=== PATIENT | male | born 1955 | race Caucasian/White ===

== ENCOUNTER 2020-09-02 10:54 | Emergency (ER) | payer OTHER | END 2020-09-02 11:41 | disposition home or self-care (01) | LOC: JVIRT 10:54 | DX: Z11.52 Encounter for screening for COVID-19 (principal) | CPT/HCPCS: C9803; G2012-GT; U0003 ==

== ENCOUNTER 2021-09-01 08:04 | Day surgery (SDC) | payer OTHER ==
[2021-08-26 12:24] VITALS: BMI 26.2
[2021-09-01 10:25] VITALS: TEMP 98.1
[2021-09-01 10:42] VITALS: BP 120/84; PULSE 78
== END 2021-09-01 10:50 | disposition home or self-care (01) ==
LOC: FASU 08:04
PROVIDERS: ATTEND Orthopaedic Surgery Hand Surgery
PROC: 0LN70ZZ Release Right Hand Tendon, Open Approach (ICD-10-PCS; principal; 2021-09-01 09:47)
DX: M65.341 Trigger finger, right ring finger (principal)

== ENCOUNTER 2023-12-28 14:12 | Emergency (ER) | payer OTHER ==
[2023-12-28] MEDS ORDERED: ACETAMINOPHEN 500 MG TABLET (FP) ONE (14:33)
[2023-12-28] MEDS ORDERED: DIPHTH,PERTUSS(ACELL),TET 0.5 ML DISP.SYRIN IM ONE (14:33)
[2023-12-28] MEDS ORDERED: LIDOCAINE 5% TOPICAL PATCH ONE (14:33)
[2023-12-28 14:37] VITALS: BP 150/67; PULSE 67; RESP 16; TEMP 98.6; BMI 25.1
[2023-12-28] MEDS: ACETAMINOPHEN 500 MG TABLET (FP) PO ONE (14:50)
[2023-12-28] MEDS: DIPHTH,PERTUSS(ACELL),TET 0.5 ML DISP.SYRIN IM ONE (14:55)
[2023-12-28] MEDS: LIDOCAINE 5% TOPICAL PATCH TP ONE (14:56)
[2023-12-28] MEDS ORDERED: LIDOCAINE PATCH REMOVAL MC ONE (22:00)
== END 2023-12-28 16:05 | disposition home or self-care (01) ==
LOC: FER 14:12
PROC: 3E0234Z Introduction of Serum, Toxoid and Vaccine into Muscle, Percutaneous Approach (ICD-10-PCS; principal; 2023-12-28)
DX: S22.31XA Fracture of one rib, right side, initial encounter for closed fracture (principal); V18.9XXA Unspecified pedal cyclist injured in noncollision transport accident in traffic accident, initial encounter
CPT/HCPCS: 70450-TC; 71045-TC-FY; 71101-TC-RT-FY; 73030-TC-RT-FY; 90471; 90715; 99284-25

== ENCOUNTER 2024-01-10 13:12 | Emergency (ER) | payer OTHER ==
[2024-01-10 13:33] VITALS: RESP 16; BMI 28.9
[2024-01-10] MEDS ORDERED: MECLIZINE HCL 25 MG TABLET (FP) ONE ×2 (14:13→15:35)
[2024-01-10] MEDS: MECLIZINE HCL 25 MG TABLET (FP) PO ONE ×2 (14:20→15:44)
[2024-01-10] MEDS: SODIUM CHLORIDE 0.9% 500 ML INFUS.BAG IV ONE (14:21)
[2024-01-10 14:41] LABS: HEMOGLOBIN 14.7 G/dL (11.7-16.9); MCH 28.7 pg (25.7-33.7); MCHC 32.8 g/dl (32.0-35.9); MEAN CELL VOLUME 87.8 fl (80-96); MEAN PLT VOLUME 8.2 fl (7.5-11.1); PLATELET COUNT 180.2 10^3/uL (134-434); RBC 5.13 10^6/uL (4.00-5.60); RDW 14.1 % (11.9-15.9)
[2024-01-10 14:48] LABS: ALBUMIN 4.8 g/dl (3.4-5.0); BILIRUBIN,TOTAL 1.8 mg/dl (0.2-1); CALCIUM 9.7 mg/dl (8.5-10.1); CREATININE 0.9 mg/dl (0.6-1.3); POTASSIUM 3.9 mmol/L (3.5-5.1); TOT PROT 6.9 g/dl (6.4-8.2)
[2024-01-10 14:49] LABS: PLATELET ESTIMATE ADEQUATE
[2024-01-10 16:28] VITALS: BP 143/94; PULSE 72; TEMP 98.2
== END 2024-01-10 16:51 | disposition home or self-care (01) ==
LOC: FER 13:12
DX: R42 Dizziness and giddiness (principal); R11.0 Nausea
CPT/HCPCS: 36415; 70450-TC; 80053; 84484; 85027; 93005; 99285-25

== ENCOUNTER 2024-03-07 08:31 | Day surgery (SDC) | payer OTHER ==
[2024-03-04 15:48] VITALS: BMI 25.4
[2024-03-07] MEDS ORDERED: BUPIVACAINE HCL/PF 2.5 MG/ML - 30 ML VIAL IJ ONE (09:52)
[2024-03-07] MEDS ORDERED: EPINEPHrine 1:1,000 1,000 MCG/ML ML ONE (09:52)
[2024-03-07] MEDS ORDERED: MIDAZOLAM HCL 2 MG/2 ML SINGLE DOSE VIAL ONE (11:18)
[2024-03-07] MEDS ORDERED: ROPIVACAINE HCL/PF 100 MG/20 ML VIAL ONE (11:26)
[2024-03-07] MEDS ORDERED: PROPOFOL 20 ML ONE (11:49)
[2024-03-07] MEDS ORDERED: LIDOCAINE HCL/PF 2% SDV 5ML VIAL ONE (11:50)
[2024-03-07] MEDS ORDERED: ONDANSETRON 4 MG/2 ML VIAL ONE (11:50)
[2024-03-07] MEDS ORDERED: ROCURONIUM BROMIDE 50 MG/5 ML SYRINGE ONE (11:50)
[2024-03-07] MEDS ORDERED: ceFAZolin SODIUM 1 GM VIAL ONE (11:50)
[2024-03-07] MEDS ORDERED: DEXAMETHASONE SOD PHOSPHATE 4 MG/1 ML VIAL ONE (11:50)
[2024-03-07] MEDS ORDERED: SEVOFLURANE 250 ML BTL ONE (11:51)
[2024-03-07] MEDS ORDERED: TRANEXAMIC ACID 1000 MG/10 ML VIAL ONE (12:18)
[2024-03-07] MEDS ORDERED: ONDANSETRON 4 MG/2 ML VIAL IVPUSH PRN (12:32)
[2024-03-07] MEDS ORDERED: oxyCODONE HCL 5 MG TABLET PO PRN ×2 (12:32)
[2024-03-07] MEDS ORDERED: LACTATED RINGERS SOLUTION 1,000 ML IV SCH (12:45)
[2024-03-07] MEDS ORDERED: SUGAMMADEX SODIUM 200 MG/2 ML VIAL ONE (13:34)
[2024-03-07] MEDS: KETOROLAC TROMETHAMINE 30 MG/1 ML VIAL IVPUSH SCH (14:25)
[2024-03-07] MEDS: ACETAMINOPHEN 500 MG TABLET (FP) PO SCH (14:29)
[2024-03-07] MEDS: ACETAMINOPHEN 1000 MG/100 ML BAG IVPB ONE (14:30)
[2024-03-07 15:06] VITALS: TEMP 97
[2024-03-07 15:53] VITALS: BP 118/72; PULSE 81; RESP 19
[2024-03-07] MEDS ORDERED: ACETAMINOPHEN 500 MG TABLET (FP) PO SCH (20:30)
== END 2024-03-07 15:59 | disposition home or self-care (01) ==
LOC: FASU 08:31
PROVIDERS: ATTEND Orthopaedic Surgery Sports Medicine
PROC: 0LB14ZZ Excision of Right Shoulder Tendon, Percutaneous Endoscopic Approach (ICD-10-PCS; principal; 2024-03-07 12:24)
DX: S46.011A Strain of muscle(s) and tendon(s) of the rotator cuff of right shoulder, initial encounter (principal); S43.431A Superior glenoid labrum lesion of right shoulder, initial encounter; M75.41 Impingement syndrome of right shoulder; X58.XXXA Exposure to other specified factors, initial encounter; Y93.9 Activity, unspecified; Y92.9 Unspecified place or not applicable; M65.811 Other synovitis and tenosynovitis, right shoulder
CPT/HCPCS: 94760; C1713; C1763; C1883; J0131